=== PATIENT | male | born 1930 ===

== ENCOUNTER 2017-09-14 10:00 | Day surgery (SDC) | payer OTHER, MEDICARE, BC ==
[2017-09-08 13:51] VITALS: BMI 28.2
[2017-09-14] MEDS ORDERED: Lidocaine 2% Inj (20ml) ONE (10:06)
[2017-09-14] MEDS ORDERED: Iohexol 350mgl/ml 50 ML ONE (10:07)
[2017-09-14] MEDS ORDERED: Iodixanol 320 MG/ML 100 ML BOTTLE IV ONE (10:07)
[2017-09-14] MEDS ORDERED: Iodixanol 320 MG/ML 200 ML BOTTLE IV ONE (10:07)
[2017-09-14] MEDS ORDERED: Adenosine 90 mg/30mL IV ONE (10:08)
[2017-09-14] MEDS ORDERED: Nitroglycerin 50mg in D5W 50 MG/250 ML BOTTLE IV ONE (10:09)
[2017-09-14] MEDS ORDERED: Verapamil 0 ML ONE (10:09)
[2017-09-14] MEDS ORDERED: Phenylephrine 10 mg/ml Inj ONE (10:40)
[2017-09-14] MEDS ORDERED: Midazolam 2 MG/2 ML VIAL ONE ×2 (11:10→11:24)
[2017-09-14] MEDS ORDERED: Sodium Chloride 0.9% 1,000 ML IV SCH (12:30)
[2017-09-14 13:07] VITALS: TEMP 98
[2017-09-14 14:16] VITALS: RESP 18
[2017-09-14] MEDS ORDERED: Morphine 4 mg/ml ISec SC ONE (16:17)
[2017-09-14 17:45] VITALS: BP 131/56
[2017-09-14 18:11] VITALS: PULSE 76
--- NOTE | 2017-09-15 08:32 | CARDCATH ---
PROCEDURE DATE: 09/14/2017 INDICATIONS: Avni Love is an 87-year-old male who presented to [facility] with complaints of substernal chest pain radiating into the arm and shoulder area with dynamic ST changes on EKG in lateral leads. He was brought to the mechanical shop laborer at [facility], underwent diagnostic cardiac catheterization showing proximal RCA and mid LAD disease. He was subsequently brought to OR for further evaluation and treatment. PROCEDURE PERFORMED: Coronary angiogram with fractional flow reserve of right coronary artery and mid left anterior descending, fractional flow reserve of proximal right coronary artery physiologically nonsignificant at 0.88, percutaneous transluminal angioplasty and stenting of mid left anterior descending lesion, 80% stenosis via angiographic diameter with lesion reduction down to 0%, deployment of stent 35 x 20 mm Lagrange drug-eluting regeneration down to 0% CUBA-3 flow, 6-Panamanian right femoral arterial access, Angio-Seal closure device for hemostasis. ANGIOGRAPHIC FINDINGS: Right coronary artery proximal 65% stenosis and IV nitroglycerin given. FFR done that showed FFR is physiologically nonsignificant at 0.88. Subsequently, left coronary angiogram was obtained. Mid LAD lesion was identified, which was severe at 80%. The stent was predilated with a 3.0 x 9 balloon and subsequently stented with 35 x 30 Lagrange drug-eluting stent with degeneration down to 0% CUBA-3 flow. IMPRESSION: Successful revascularization of the mid left anterior descending stenosis, deployment of drug-eluting stent, fractional flow reserve of proximal right coronary artery is physiologically nonsignificant at 0.88. RECOMMENDATIONS: Patient is to be maintained on dual antiplatelet therapy for one year. Patient can be transferred back to [facility] in four hours. Patient to follow up with Dr. Malachi Garvin. Thank you Dr. Garvin for letting me participate in the care of your patient. Kunal Denton MD
--- NOTE | 2017-09-15 10:18 | CARD ---
APPROVED REPORT EKG Measurement Heart [id number] <Conclusion> Atrial fibrillation ST & T wave abnormality c/w ischemia
== END 2017-09-14 18:45 | disposition short-term general hospital (02) ==
LOC: CATH 10:00 → 2RNO 12:46 → CATH 18:45
PROVIDERS: ATTEND Internal Medicine Interventional Cardiology
DX: I25.10 Atherosclerotic heart disease of native coronary artery without angina pectoris (principal)
CPT/HCPCS: 93005; 93454; 93571; 93572; 99152; 99153; C1725; C1760; C1769 ×3; C1874; C1887 ×2; C1894; C9600; J0153; J0360; J1644 ×2; J2250; J2270; J3010; J7030; J7040; Q9966; Q9967